=== PATIENT | female | born 1965 | race Caucasian/White ===

== ENCOUNTER 2017-02-13 10:08 | Outpatient (RCR) | payer OTHER ==
[~2017-02-13 10:08] MED LIST: ASPI-808 PO; CALC-656 PO; CHOL2000 PO; ERGO400C PO; FEXO1TAB49 PO; HYDR-34 PO; IBP600T1 PO; LEVO75TA57 PO; Levothyroxine Sodium PO; METH454P PO; Metronidazole PO; OXYC-12 PO; POLY119P PO; Simethicone PO
[2017-02-13 10:26] LABS: BASOPHILS % (AUTO) 1 % (0-10); EOSINOPHILS # (AUTO) 0.1 10^3/uL (0.0-0.3); EOSINOPHILS % (AUTO) 3 % (0-10); LYMPHOCYTES # (AUTO) 1.5 X 10^3 (1.0-4.0); LYMPHOCYTES % (AUTO) 35 % (12-44); MEAN CORPUSCULAR HEMOGLOBIN 30 PG (25-34); MEAN CORPUSCULAR HGB CONC 34 G/DL (32-36); MEAN CORPUSCULAR VOLUME 89 FL (80-99); MEAN PLATELET VOLUME 10.1 FL (7.4-10.4); MONOCYTES # (AUTO) 0.5 X 10^3 (0.0-1.0); MONOCYTES % (AUTO) 10 % (0-12); NEUTROPHILS # (AUTO) 2.2 X 10^3 (1.8-7.8); NEUTROPHILS % (AUTO) 51 % (42-75); PLATELET COUNT 254 10^3/uL (130-400); RED BLOOD COUNT 4.82 10^6/uL (4.35-5.85); RED CELL DISTRIBUTION WIDTH 13.1 % (10.0-14.5); WHITE BLOOD COUNT 4.3 10^3/uL (4.3-11.0)
[2017-02-13 10:47] LABS: ALANINE AMINOTRANSFERASE 22 U/L (0-55); ALBUMIN 4.3 G/DL (3.2-4.5); ANION GAP 8 MMOL/L (5-14); ASPARTATE AMINO TRANSFERASE 18 U/L (5-34); BILIRUBIN,TOTAL 0.3 MG/DL (0.1-1.0); BLOOD UREA NITROGEN 12 MG/DL (7-18); BUN/CREATININE RATIO 16; CALCIUM 10.1 MG/DL (8.5-10.1); CARBON DIOXIDE 25 MMOL/L (21-32); CHLORIDE 109 MMOL/L (98-107); CREATININE SERUM 0.74 MG/DL (0.60-1.30); GFR ESTIMATED > 60; GLUCOSE 83 MG/DL (70-105); POTASSIUM 3.7 MMOL/L (3.6-5.0); SODIUM 142 MMOL/L (135-145); TOTAL PROTEIN 6.9 G/DL (6.4-8.2)
== END 2017-05-14 | disposition home or self-care (01) ==
LOC: ONC 10:08
PROVIDERS: ATTEND Internal Medicine Hematology & Oncology
DX: C50.411 Malignant neoplasm of upper-outer quadrant of right female breast (principal); D68.2 Hereditary deficiency of other clotting factors; E03.9 Hypothyroidism, unspecified; Z17.0 Estrogen receptor positive status [ER+]; Z86.711 Personal history of pulmonary embolism; Z79.82 Long term (current) use of aspirin
CPT/HCPCS: 36415; 80053; 84443; 85025; 86300; 99213

== ENCOUNTER → 2017-02-28 | Outpatient (CLI) | payer OTHER ==
[~2017-02-28] MED LIST changes: +BARIUM SUSPENSION 2.1% (VANILLA SILQ) 450 ML PO ONE; +CATHETER FLUSH 10 ML SYR IV PRN; +IOHEXOL 350 MG/ML 100 ML (OMNIPAQUE 350) VIAL IV ONE; +NS 100 ML (IVPB) BAG IV ONE
[2017-02-28] MEDS: CATHETER FLUSH 10 ML SYR IV PRN ×2 (11:05→11:08)
--- NOTE | 2017-02-28 15:36 | Diagnostic Imaging Report ---
PROCEDURE: CT chest and abdomen with contrast. TECHNIQUE: Multiple contiguous axial images were obtained through the chest and abdomen after the administration of intravenous contrast. INDICATION: Breast cancer. CONTRAST: 100 mL of Omnipaque 350 is administered intravenously. COMPARISON: 02/13/2016. FINDINGS: CT chest: The lungs demonstrate tiny calcified granulomas in the anterior mid portion of right middle lobe with no suspicious pulmonary nodule, mass, or consolidation seen. The heart size is normal. There is normal caliber of the thoracic aorta. Calcified granulomas in the right paratracheal and precarinal stations are seen. No noncalcified enlarged lymph nodes or masses are noted in the mediastinum, severino, or axillae. Symmetric breast implants are noted. No soft tissue mass identified. The osseous structures appear grossly unremarkable. CT abdomen: The liver, the gallbladder, the spleen, the pancreas, and the adrenal glands appear unremarkable. The kidneys have symmetric enhancement with no hydronephrosis. The abdominal aorta is normal in caliber. No para-aortic significantly enlarged lymph nodes. There are surgical clips seen in the right lower quadrant and suture near the base of the cecum, presumably related to prior appendectomy. The osseous structures demonstrate a 1.7 cm sclerotic focus in the anterior aspect of the right iliac bone. This is similar to appearance on the localizer CT scan associated with the PET performed on 12/13/2015 with no PET activity of significance seen at this location on the prior study. Lower lumbar spine facet sclerotic degenerative changes are seen. IMPRESSION: CT chest: Calcified granulomas in the right middle lobe and mediastinum. No evidence of metastasis. CT abdomen: Sclerotic lesion measuring 1.8 cm in the anterior aspect of the right iliac bone is seen. This region demonstrated no significant hypermetabolism on prior PET and is favored to be an incidental bony island. Followup exams recommended. No soft tissue mass or lymphadenopathy seen. Dictated by: Dictated on workstation # [id number]
--- NOTE | 2017-02-28 18:10 | Diagnostic Imaging Report ---
Whole body bone scan. Technique: After the intravenous administration of 26 mCi of Technetium 99m MDP, whole body delayed phase bone scan images were obtained with lateral views of the head and neck and the chest regions. Indication: Breast cancer. Findings: Mild foci of upper thoracic and lower lumbar spine increased radiotracer uptake are likely degenerative. Likely ossification related to chondral cartilage activity is also seen in the anterior lower ribs. There is mild activity with increased uptake in the shoulders and moderate increased activity in the knees more prominent anteriorly probably along the patellofemoral compartments compatible with degenerative changes. There is no correlate increased uptake seen to the sclerotic focus seen on CT scan of the abdomen in the anterior aspect of the right iliac bone. No suspicious intense foci of increased uptake particularly in the axial skeleton to suggest metastatic disease. IMPRESSION: Findings likely degenerative related with no scintigraphic evidence of osseous metastasis. Dictated by: Dictated on workstation # [id number]
== END ==
LOC: CARD 10:50
PROVIDERS: ATTEND Internal Medicine Hematology & Oncology
DX: Z01.89 Encounter for other specified special examinations (principal); C50.911 Malignant neoplasm of unspecified site of right female breast
CPT/HCPCS: 71260; 74160; 78306

== ENCOUNTER 2017-05-20 09:19 | Outpatient (RCR) | payer OTHER ==
[~2017-05-20 09:19] MED LIST changes: -BARIUM SUSPENSION 2.1% (VANILLA SILQ) 450 ML PO ONE; -CATHETER FLUSH 10 ML SYR IV PRN; -IOHEXOL 350 MG/ML 100 ML (OMNIPAQUE 350) VIAL IV ONE; -NS 100 ML (IVPB) BAG IV ONE
[2017-05-20 09:34] LABS: BASOPHILS % (AUTO) 1 % (0-10); EOSINOPHILS # (AUTO) 0.2 10^3/uL (0.0-0.3); EOSINOPHILS % (AUTO) 4 % (0-10); LYMPHOCYTES # (AUTO) 1.9 X 10^3 (1.0-4.0); LYMPHOCYTES % (AUTO) 37 % (12-44); MEAN CORPUSCULAR HGB CONC 34 G/DL (32-36); MEAN CORPUSCULAR VOLUME 91 FL (80-99); MONOCYTES # (AUTO) 0.3 X 10^3 (0.0-1.0); MONOCYTES % (AUTO) 7 % (0-12); NEUTROPHILS # (AUTO) 2.7 X 10^3 (1.8-7.8); NEUTROPHILS % (AUTO) 52 % (42-75); PLATELET COUNT 247 10^3/uL (130-400); RED CELL DISTRIBUTION WIDTH 12.7 % (10.0-14.5); WHITE BLOOD COUNT 5.1 10^3/uL (4.3-11.0)
[2017-05-20 09:36] LABS: MEAN CORPUSCULAR HEMOGLOBIN 30 PG (25-34)
[2017-05-20 10:38] LABS: ALANINE AMINOTRANSFERASE 25 U/L (0-55); ALBUMIN 4.1 GM/DL (3.2-4.5); ANION GAP 8 MMOL/L (5-14); ASPARTATE AMINO TRANSFERASE 17 U/L (5-34); BILIRUBIN,TOTAL 0.4 MG/DL (0.1-1.0); BLOOD UREA NITROGEN 18 MG/DL (7-18); BUN/CREATININE RATIO 22; CALCIUM 9.8 MG/DL (8.5-10.1); CARBON DIOXIDE 26 MMOL/L (21-32); CHLORIDE 107 MMOL/L (98-107); CREATININE SERUM 0.82 MG/DL (0.60-1.30); GFR ESTIMATED > 60; GLUCOSE 97 MG/DL (70-105); POTASSIUM 3.8 MMOL/L (3.6-5.0); SODIUM 141 MMOL/L (135-145); TOTAL PROTEIN 6.8 GM/DL (6.4-8.2)
== END 2017-08-10 | disposition home or self-care (01) ==
LOC: ONC 09:19
PROVIDERS: ATTEND Internal Medicine Hematology & Oncology
DX: C50.411 Malignant neoplasm of upper-outer quadrant of right female breast (principal); D68.2 Hereditary deficiency of other clotting factors; E03.9 Hypothyroidism, unspecified; Z17.0 Estrogen receptor positive status [ER+]; Z86.711 Personal history of pulmonary embolism; Z79.82 Long term (current) use of aspirin
CPT/HCPCS: 36415; 80053; 85025; 86300; 99213

== ENCOUNTER → 2017-08-19 | Outpatient (CLI) | payer OTHER ==
[~2017-08-19] MED LIST changes: +ASCO-262 PO; +CALC-650 PO; +CETI10TA20 PO; +CHOL200014 PO; +LEVO100T PO; +TURM500C4 PO
[2017-08-19 12:17] LABS: THYROID STIMULATING HORMONE 0.45 UIU/ML (0.35-4.94)
== END ==
LOC: LAB 11:28
PROVIDERS: ATTEND Family Medicine
DX: E03.9 Hypothyroidism, unspecified (principal)
CPT/HCPCS: 84439; 84443

== ENCOUNTER 2017-08-21 05:37 | Outpatient (CLI) | payer OTHER ==
[~2017-08-21] VITALS: Ht 172.7 cm; Wt 93.1 kg
[~2017-08-21 05:37] MED LIST changes: -ASCO-262 PO; -CALC-650 PO; -CETI10TA20 PO; -CHOL200014 PO; -LEVO100T PO; -TURM500C4 PO
[2017-08-21] MEDS ORDERED: LEVO100T PO (09:39)
[2017-08-21] MEDS ORDERED: TURM500C4 PO (09:39)
[2017-08-21] MEDS ORDERED: CALC-650 PO (09:39)
[2017-08-21] MEDS ORDERED: CHOL200014 PO (09:39)
[2017-08-21] MEDS ORDERED: CETI10TA20 PO (09:39)
[2017-08-21] MEDS ORDERED: ASCO-262 PO (09:39)
== END 2017-08-21 09:44 ==
LOC: PREOP 05:37
PROVIDERS: ATTEND Internal Medicine
DX: Z01.818 Encounter for other preprocedural examination (principal); Z85.3 Personal history of malignant neoplasm of breast; Z80.0 Family history of malignant neoplasm of digestive organs

== ENCOUNTER 2017-08-23 07:04 | Day surgery (SDC) | payer OTHER ==
--- NOTE | 2017-08-14 10:31 | HISTORY AND PHYSICAL ---
DATE OF SERVICE: DATE OF ADMISSION: 08/23/2017 COLONOSCOPY HISTORY AND PHYSICAL HISTORY OF PRESENT ILLNESS: The patient is a 51-year-old white female referred by Dr. Willoughby for screening colonoscopy. She last accomplished colonoscopy 5 years ago and had no evidence for neoplasia. She is deemed to be of higher than average risk as there is a family history for colon cancer, in this case being her mother diagnosed some time in her early to mid 70s. In the interval since her last colonoscopy, the patient was diagnosed with breast cancer in 11/2015. She underwent a double mastectomy with reconstruction in 01/2016 with no evidence for recurrence. She did not require chemotherapy or radiation therapy. PAST MEDICAL HISTORY: Also significant for small pulmonary embolism in 2013 which followed a total abdominal hysterectomy for fibroids. Ovaries were left intact. She was on direct anticoagulant therapy for 6 months. MEDICATIONS ON ADMISSION: Synthroid 100 mcg daily, Rhonda 180 mg daily, aspirin 325 mg daily, vitamin C 1000 mg daily, calcium 1000 mg daily, vitamin D3 5600 units daily, Turmeric 500 mg daily, magnesium 4 mg daily, zinc 15 mg daily and Lunesta 1 mg at bedtime p.r.n. insomnia. SOCIAL HISTORY: She is with no past smoking history and occasional social alcohol use. PAST SURGICAL HISTORY: Significant for hysterectomy, bilateral mastectomy, past bilateral bunionectomies an abdominoplasty. FAMILY HISTORY: Partially noted in the HPI. Father has history of COPD with a smoking history. Has one brother who had laryngeal cancer and one brother with hepatitis C. Her mother also had breast cancer in addition to colon cancer, postmenopausal. PHYSICAL EXAMINATION: GENERAL: Reveals a pleasant, white female, appears to be in no acute distress. VITAL SIGNS: Blood pressure 116/78, heart rate 72 and regular, respiratory rate 16 and nonlabored. HEENT: Unremarkable. Sclerae nonicteric. CHEST: Clear. CARDIOVASCULAR: Reveals a regular rate and rhythm without murmur, S3 or S4. ABDOMEN: Soft, supple without mass, organomegaly or tenderness. EXTREMITIES: Reveal no cyanosis, clubbing or edema. ASSESSMENT: The patient was set up for a screening colonoscopy on 08/23/2017. Prep instructions with SUPREP kit were given and questions were answered. I thank you for the referral of this pleasant lady. Job ID: [id number] DocumentID: [id number] Dictated Date: 07/30/2017 07:33:50 [employer] Date: 07/30/2017 08:09:49 Dictated By: SHEY WOODS MD
[~2017-08-23] VITALS: Ht 172.7 cm; Wt 93.1 kg
[~2017-08-23 07:04] MED LIST changes: +ASCO-262 PO; +CALC-650 PO; +CETI10TA20 PO; +CHOL200014 PO; +LEVO100T PO; +TURM500C4 PO
[2017-08-23] MEDS ORDERED: 1/2 NS IV SOLUTION 1,000 ML IV ONE (07:10)
[2017-08-23] MEDS ORDERED: 1/2 NS IV SOLUTION 1,000 ML IV STA (07:12)
[2017-08-23] MEDS ORDERED: LIDOCAINE JELLY 2% (XYLOCAINE) 5 ML TUBE MM PRN (07:15)
[2017-08-23 07:29] VITALS: BP 118/83
--- NOTE | 2017-08-23 07:32 | Pre-Op Note & Conscious Sedat ---
Pre-Operative Progress Note H&P Reviewed The H&P was reviewed, patient examined and no changes noted. Date H&P Reviewed: Aug 23, 2017 Time H&P Reviewed: 07:32 Conscious Sedation Pre-Proced ASA Class: 2 Airway Mallampati Classification: (mcgrath appropriate class) I. II. III, IV Lungs Heart ASA score ASA 1: a normal healthy patient ASA 2: a patient with a mild systemic disease (mid diabetes, controlled hypertension, obesity ASA 3: a patient with a severe systemic disease that limits activity (angina , COPD, prior Myocardial infarction) ASA 4: a patient with an incapacitating disease that is a constant threat to life (CHF, renal failure) ASA 5: a moribund patient not expected to survive 24 hrs. (ruptured aneurysm) ASA 6: a declared brain patient whose organs are being harvested. For emergent operations, add the letter E after the classification Grade 3 Sedation Plan: Analgesia, Amnesia, Plan communicated to team members, Discussed options with patient/fam, Discussed risks with patient/fam Note The patient is an appropriate candidate to undergo the planned procedure, sedation, and anesthesia. The patient immediately re-assessed prior to indication. SHEY WOODS MD Aug 23, 2017 07:32
[2017-08-23] MEDS ORDERED: fentaNYL INJECTION 100 MCG/2 ML AMP ONE (07:37)
[2017-08-23] MEDS ORDERED: MIDAZOLAM 2 MG/2 ML (VERSED) VIAL ONE ×2 (07:37→07:53)
[2017-08-23] MEDS ORDERED: LIDOCAINE JELLY 2% (XYLOCAINE) 5 ML TUBE ONE (07:38)
[2017-08-23] MEDS: fentaNYL INJECTION 100 MCG/2 ML AMP IVP PRN ×2 (07:53→08:00)
[2017-08-23] MEDS: MIDAZOLAM 2 MG/2 ML (VERSED) VIAL IVP PRN ×2 (07:55→08:05)
[2017-08-23 08:50] VITALS: BP 128/90
[2017-08-23 09:20] VITALS: BP 118/87
[2017-08-23 09:48] VITALS: BP 118/87
--- OUTSIDE RECORDS SUMMARY | 2017-08-23 21:05 | XMS REPORT | Continuity of Care Document ---
Author Author [facility] Organization [facility] Address Unknown Phone Unavailable Allergies Active Description Code Type Severity Reaction Onset Reported/Identified Relationship to Patient Clinical Status Yes PCN PCN Unknown N/A 10/26/2011 Yes Penicillins [id number] Drug Allergy Unknown N/A 09/04/2015 Medications Problems Date Dx Coded Attending Type Code Diagnosis Diagnosed By 12/12/2012 Ot 218.9 12/12/2012 Ot 626.2 12/12/2012 Ot 793.5 12/12/2012 Ot V45.89 10/13/2014 Ot 793.81 10/13/2014 Ot V76.12 10/13/2014 Ot 610.1 10/13/2014 Ot 459.89 10/13/2014 Ot V16.0 10/13/2014 Ot V16.3 10/13/2014 Ot V76.51 10/13/2014 Ot 244.8 10/13/2014 Ot 268.9 10/13/2014 Ot 610.1 10/13/2014 Ot V76.12 10/13/2014 Ot 625.8 10/13/2014 Ot 626.8 10/13/2014 Ot 626.8 10/13/2014 Ot 626.2 10/13/2014 Ot V45.89 10/13/2014 Ot V72.63 10/13/2014 Ot V74.8 10/13/2014 TERRY HICKMAN MD Ot 610.0 10/13/2014 TERRY HICKMAN MD Ot V76.12 11/01/2014 ENIO ALBRIGHT DO Ot 218.9 11/01/2014 ENIO ALBRIGHT DO Ot 626.2 11/01/2014 Ot 793.81 11/01/2014 Ot V76.12 11/01/2014 Ot 610.1 11/01/2014 Ot 459.89 11/01/2014 Ot V16.0 11/01/2014 Ot V16.3 11/01/2014 Ot V76.51 11/01/2014 Ot 244.8 11/01/2014 Ot 268.9 11/01/2014 Ot 610.1 11/01/2014 Ot V76.12 11/01/2014 Ot 625.8 11/01/2014 Ot 626.8 11/01/2014 Ot 626.8 11/01/2014 Ot 626.2 11/01/2014 Ot V45.89 11/01/2014 Ot V72.63 11/01/2014 Ot V74.8 11/01/2014 VICK BARRON, TERRY Choudhary Ot 610.0 11/01/2014 VICK BARRON, TERRY Choudhary Ot V76.12 11/01/2014 ALBRIGHT DO, ENIO C Ot 218.9 11/01/2014 ALBRIGHT DO, ENIO C Ot 626.2 11/05/2014 VICK BARRON, TERRY Choudhary Ot V76.12 11/08/2014 ALBRIGHT DO, ENIO C Ot 218.9 11/08/2014 ALBRIGHT DO, ENIO C Ot 626.2 11/08/2014 ALBRIGHT DO, ENIO C Ot V72.63 11/08/2014 ALBRIGHT DO, ENIO C Ot V74.8 11/10/2014 ALBRIGHT DO, ENIO C Ot 218.1 11/10/2014 ALBRIGHT DO, ENIO C Ot 218.9 11/10/2014 ALBRIGHT DO, ENIO C Ot 610.1 11/10/2014 ALBRIGHT DO, ENIO C Ot 616.0 11/10/2014 ALBRIGHT DO, ENIO C Ot 616.10 11/10/2014 ALBRIGHT DO, ENIO C Ot 617.0 11/10/2014 ALBRIGHT DO, ENIO C Ot 620.8 11/10/2014 ALBRIGHT DO, ENIO C Ot 622.7 12/02/2014 TERRY HICKMAN MD Ot V76.12 12/02/2014 ALBRIGHT DO, ENIO C Ot 218.9 12/02/2014 ALBRIGHT DO, ENIO C Ot 626.2 12/02/2014 ALBRIGHT DO, ENIO C Ot V72.63 12/02/2014 ALBRIGHT DO, ENIO C Ot V74.8 12/15/2014 VICK BARRON, TERRY Choudhary Ot 786.50 12/15/2014 VICK BARRON, TERRY M Ot 790.6 12/15/2014 VICK BARRON, TERRY M Ot 786.50 12/15/2014 VICK BARRON, TERRY M Ot 790.6 01/04/2015 IVCK BARRON, TERRY M Ot 786.50 01/04/2015 VICK BARRON, TERRY M Ot 786.50 01/04/2015 VICK BARRON, TERRY M Ot 790.6 01/04/2015 VICK BARRON, TERRY M Ot 790.99 02/08/2015 KHUSHBOO, BOBAN N Ot 244.9 02/08/2015 KHUSHBOO, BOBAN N Ot 415.19 02/08/2015 KHUSHBOO, BOBAN N Ot V58.61 02/08/2015 KHUSHBOO, BOBAN N Ot V88.01 03/28/2015 KHUSHBOO, BOBAN N Ot 244.9 03/28/2015 KHUSHBOO, BOBAN N Ot 415.19 03/28/2015 KHUSHBOO, BOBAN N Ot V58.61 03/28/2015 KHUSHBOO, BOBAN N Ot V88.01 06/28/2015 KHUSHBOO, BOBAN N Ot 244.9 06/28/2015 KHUSHBOO, BOBAN N Ot 415.19 06/28/2015 KHUSHBOO, BOBAN N Ot V58.61 06/28/2015 KHUSHBOO, BOBAN N Ot V88.01 07/04/2015 KHUSHBOO, BOBAN N Ot 244.9 07/04/2015 KHUSHBOO, BOBAN N Ot 415.19 07/04/2015 KHUSHBOO, BOBAN N Ot V58.61 07/04/2015 KHUSHBOO, BOBAN N Ot V88.01 07/05/2015 KHUSHBOO, BOBAN N Ot 244.9 07/05/2015 KHUSHBOO, BOBAN N Ot 415.19 07/05/2015 KHUSHBOO, BOBAN N Ot V58.61 07/05/2015 KHUSHBOO, BOBAN N Ot V88.01 07/05/2015 KHUSHBOO, BOBAN N Ot 244.9 07/05/2015 KHUSHBOO, BOBAN N Ot 415.19 07/05/2015 KHUSHBOO, BOBAN N Ot V58.61 07/05/2015 KHUSHBOO, BOBAN N Ot V88.01 07/26/2015 KHUSHBOO, BOBAN N Ot 244.9 07/26/2015 KHUSHBOO, HAIM N Ot 415.19 07/26/2015 KHUSHBOO, HAIM N Ot V58.61 07/26/2015 KHUSHBOO, HAIM N Ot V88.01 08/10/2015 KHUSHBOO, HAIM N Ot 244.9 08/10/2015 KHUSHBOO, HAIM N Ot 415.19 08/10/2015 KHUSHBOO, HAIM N Ot V58.61 08/10/2015 KHUSHBOO, HAIM N Ot V88.01 09/04/2015 KHUSHBOO, HAIM N Ot 244.9 09/04/2015 KHUSHBOO, HAIM N Ot 415.19 09/04/2015 KHUSHBOO, HAIM N Ot V58.61 09/04/2015 KHUSHBOO, HAIM N Ot V88.01 09/05/2015 JARROD BARRON, DELPHINE R Ot R07.9 09/05/2015 JARROD BARRON, DELPHINE R Ot Z86.711 09/05/2015 JARROD BARRON, DELPHINE R Ot E03.9 09/05/2015 JARROD BARRON, DELPHINE R Ot M54.12 09/05/2015 JARROD BARRON, DELPHINE R Ot M79.622 09/05/2015 JARROD BARRON, DELPHINE R Ot R07.9 09/05/2015 JARROD BARRON, DELPHINE R Ot Z86.711 09/05/2015 JARROD BARRON, DELPHNIE R Ot R07.9 09/05/2015 JARROD BARRON, DELPHINE R Ot Z86.711 09/13/2015 KHUSHBOO, HAIM N Ot 244.9 09/13/2015 KHUSHBOO, HAIM N Ot 415.19 09/13/2015 KHUSHBOO, HAIM N Ot V58.61 09/13/2015 KHUSHBOO, HAIM N Ot V88.01 10/29/2015 KHUSHBOO, HAIM N Ot 244.9 10/29/2015 KHUSHBOO, BOBAN N Ot 415.19 10/29/2015 KHUSHBOO, BOBKOBY N Ot V58.61 10/29/2015 KHUSHBOO, HAIM N Ot V88.01 11/08/2015 DIONY HARRIS SEDIMENTATIONIST Ot E03.9 11/08/2015 DIONY HARRIS SEDIMENTATIONIST Ot E55.9 11/08/2015 WYATTDIONY BAHENA SEDIMENTATIONIST Ot Z00.00 11/08/2015 HAIM CUELLO Ot E03.9 11/08/2015 HAIM CUELLO N Ot I26.99 11/08/2015 HAIM CUELLO N Ot Z79.82 11/15/2015 Ot 793.81 11/15/2015 Ot V76.12 11/15/2015 Ot 610.1 11/15/2015 Ot 459.89 11/15/2015 Ot V16.0 11/15/2015 Ot V16.3 11/15/2015 Ot V76.51 11/15/2015 Ot 244.8 11/15/2015 Ot 268.9 11/15/2015 Ot 610.1 11/15/2015 Ot V76.12 11/15/2015 Ot 625.8 11/15/2015 Ot 626.8 11/15/2015 Ot 626.8 11/15/2015 Ot 626.2 11/15/2015 Ot V45.89 11/15/2015 Ot V72.63 11/15/2015 Ot V74.8 11/15/2015 VICK BARRON, TERRY Choudhary Ot 610.0 11/15/2015 VICK BARRON, TERRY M Ot V76.12 11/15/2015 ALBRIGHT DO, ENIO C Ot 218.9 11/15/2015 ALBRIGHT DO, ENIO C Ot 626.2 11/15/2015 VICK BARRON, TERRY M Ot V76.12 11/15/2015 ALBRIGHT DO, ENIO C Ot 218.9 11/15/2015 ALBRIGHT DO, ENIO C Ot 626.2 11/15/2015 ALBRIGHT DO, ENIO C Ot V72.63 11/15/2015 ALBRIGHT DO, ENIO C Ot V74.8 11/15/2015 VICK BARRON, TERRY Choudhary Ot 786.50 11/15/2015 VICK BARRON, TERRY M Ot 786.50 11/15/2015 VICK BARRON, TERRY M Ot 790.6 11/15/2015 VICK BARRON, TERRY Choudhary Ot 790.99 11/15/2015 HAIM CUELLO N Ot E03.9 11/15/2015 KHUSHBOO, BOBAN N Ot I26.99 11/15/2015 KHUSHBOO, MAKEDAAN N Ot Z79.82 11/15/2015 VANBECELAEJEANNIE, DIONY Choudhary SEDIMENTATIONIST Ot E03.9 11/15/2015 VANBECELAEJEANNIE, DIONY Choudhary SEDIMENTATIONIST Ot E55.9 11/15/2015 VANBECELAEJEANNIE, DIONY M SEDIMENTATIONIST Ot Z00.00 12/18/2015 KHUSHBOO, BOBAN N Ot E03.9 12/18/2015 KHUSHBOO, BOBAN N Ot I26.99 12/18/2015 KHUSHBOO, BOBAN N Ot Z79.82 01/09/2016 KHUSHBOO, BOBAN N Ot E03.9 01/09/2016 KHUSHBOO, BOBAN N Ot I26.99 01/09/2016 KHUSHBOO, BOBAN N Ot Z79.82 01/10/2016 KHUSHBOO, BOBAN N Ot E03.9 01/10/2016 KHUSHBOO, BOBAN N Ot I26.99 01/10/2016 KHUSHBOO, BOBAN N Ot Z79.82 02/14/2016 KHUSHBOO, BOBAN N Ot D68.51 02/14/2016 KHUSHBOO, BOBAN N Ot R07.9 02/14/2016 KHUSHBOO, BOBAN N Ot Z86.711 03/01/2016 VANJOSEF, DIONY Choudhary SEDIMENTATIONIST Ot N60.02 SOLITARY CYST OF LEFT BREAST 03/01/2016 KIMBERLY, DIONY Choudhary SEDIMENTATIONIST Ot R92.8 OTH ABN AND INCONCLUSIVE FINDINGS ON DX 03/01/2016 DIONY HARRIS SEDIMENTATIONIST Ot Z09 ENCNTR FOR F/U EXAM AFT TRTMT FOR COND O 03/01/2016 STEVE MARES DO Ot R92.8 OTH ABN AND INCONCLUSIVE FINDINGS ON DX 03/01/2016 STEVE MARES DO Ot C50.911 MALIGNANT NEOPLASM OF UNSP SITE OF RIGHT 03/01/2016 STEVE MARES DO Ot 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 [ER -] 03/01/2016 CAROL BARRON, JAMES Ot C50.911 MALIGNANT NEOPLASM OF UNSP SITE OF RIGHT 03/01/2016 HAIM CUELLO Ot C50.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 NEOPLM OF UPPER-OUTER QUADRANT OF 03/01/2016 HAIM CUELLO Ot D68.2 HEREDITARY DEFICIENCY OF OTHER CLOTTING 03/01/2016 HAIM CUELLO Ot E03.9 HYPOTHYROIDISM, UNSPECIFIED 03/01/2016 HAIM CUELLO Ot Z17.0 ESTROGEN RECEPTOR POSITIVE STATUS [ER+] 03/01/2016 HAIM CUELLO Ot Z79.82 CORRECTION (CURRENT) USE OF ASPIRIN 03/01/2016 HAIM CUELLO Ot 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 03/01/2016 HAIM CUELLO Ot D68.51 ACTIVATED PROTEIN C RESISTANCE 03/01/2016 HAIM CUELLO Ot R07.9 CHEST PAIN, UNSPECIFIED 03/01/2016 HAIM CUELLO Ot 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 03/02/2016 HAIM CUELLO Ot C50.911 MALIGNANT NEOPLASM OF UNSP SITE OF RIGHT 03/02/2016 HAIM CUELLO Ot M85.9 DISORDER OF BONE DENSITY AND STRUCTURE, 03/02/2016 HAIM CUELLO Ot Z79.899 OTHER PROFILER HAND (CURRENT) DRUG THERAPY 03/16/2016 CAROL BARRON, JAMES Ot C50.911 MALIGNANT NEOPLASM OF UNSP SITE OF RIGHT 04/08/2016 HAIM CUELLO Ot C50.411 MALIG NEOPLM OF UPPER-OUTER QUADRANT OF 04/08/2016 HAIM CUELLO Ot D68.2 HEREDITARY DEFICIENCY OF OTHER CLOTTING 04/08/2016 AHIM CUELLO Ot E03.9 HYPOTHYROIDISM, UNSPECIFIED 04/08/2016 HAIM CUELLO Ot Z17.0 ESTROGEN RECEPTOR POSITIVE STATUS [ER+] 04/08/2016 HAIM CUELLO Ot Z79.82 PROFILER HAND (CURRENT) USE OF ASPIRIN 04/08/2016 HAIM CUELLO Ot 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 04/14/2016 DIONY HARRIS Ot N60.02 SOLITARY CYST OF LEFT BREAST 04/14/2016 DIONY HARRIS Ot R92.8 OTH ABN AND INCONCLUSIVE FINDINGS ON DX 04/14/2016 DIONY HARRIS Ot Z09 ENCNTR FOR F/U EXAM AFT TRTMT FOR COND O 04/14/2016 STEVE MARES DO Ot R92.8 OTH ABN AND INCONCLUSIVE FINDINGS ON DX 04/14/2016 STEVE MARES DO Ot C50.911 MALIGNANT NEOPLASM OF UNSP SITE OF RIGHT 04/14/2016 STEVE MARES DO Ot 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 [ER -] 04/14/2016 CAROL BARRON, JAMES Ot C50.911 MALIGNANT NEOPLASM OF UNSP SITE OF RIGHT 04/14/2016 HAIM CUELLO Ot D68.51 ACTIVATED PROTEIN C RESISTANCE 04/14/2016 HAIM CUELLO Ot R07.9 CHEST PAIN, UNSPECIFIED 04/14/2016 HAIM CUELLO Ot 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 04/14/2016 HAIM CUELLO Ot C50.911 MALIGNANT NEOPLASM OF UNSP SITE OF RIGHT 04/14/2016 HAIM CUELLO Ot M85.9 DISORDER OF BONE DENSITY AND STRUCTURE, 04/14/2016 HAIM CUELLO Ot Z79.899 OTHER PROFILER HAND (CURRENT) DRUG THERAPY 04/14/2016 HAIM CUELLO Ot C50.411 MALIG NEOPLM OF UPPER-OUTER QUADRANT OF 04/14/2016 HAIM CUELLO Ot D68.2 HEREDITARY DEFICIENCY OF OTHER CLOTTING 04/14/2016 HAIM CUELLO Ot E03.9 HYPOTHYROIDISM, UNSPECIFIED 04/14/2016 HAIM CUELLO Ot Z17.0 ESTROGEN RECEPTOR POSITIVE STATUS [ER+] 04/14/2016 HAIM CUELLO Ot Z79.82 CORRECTION (CURRENT) USE OF ASPIRIN 04/14/2016 HAIM CUELLO Ot 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51 ACTIVATED PROTEIN C RESISTANCE 04/17/2016 HAIM CUELLO Ot R07.9 CHEST PAIN, UNSPECIFIED 04/17/2016 HAIM CUELLO Ot 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 04/17/2016 HAIM CUELLO Ot C50.911 MALIGNANT NEOPLASM OF UNSP SITE OF RIGHT 04/17/2016 HAIM CUELLO Ot M85.9 DISORDER OF BONE DENSITY AND STRUCTURE, 04/17/2016 HAIM CUELLO Ot Z79.899 OTHER CORRECTION (CURRENT) DRUG THERAPY 04/17/2016 HAIM CUELLO Osmin Ot C50.411 MALIG NEOPLM OF UPPER-OUTER QUADRANT OF 04/17/2016 HAIM CUELLO Ot D68.2 HEREDITARY DEFICIENCY OF OTHER CLOTTING 04/17/2016 HAIM CUELLO Ot E03.9 HYPOTHYROIDISM, UNSPECIFIED 04/17/2016 HAIM CUELLO Ot Z17.0 ESTROGEN RECEPTOR POSITIVE STATUS [ER+] 04/17/2016 HAIM CUELLO N Ot Z79.82 PROFILER HAND (CURRENT) USE OF ASPIRIN 04/17/2016 HAIM CUELLO N Ot 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 09/04/2016 STEVE MARES DO Ot E03.9 HYPOTHYROIDISM, UNSPECIFIED 09/21/2016 BASHIR OLSON APRN Ot G47.33 OBSTRUCTIVE SLEEP APNEA (ADULT) ( PEDIATR 09/21/2016 BASHIR OLSON APRN Ot G47.33 OBSTRUCTIVE SLEEP APNEA (ADULT) ( PEDIATR 09/22/2016 BASHIR OLSON AIRCRAFT SERVICER Ot G47.33 OBSTRUCTIVE SLEEP APNEA (ADULT) ( PEDIATR 12/20/2016 DIONY HARRISP Ot N60.02 SOLITARY CYST OF LEFT BREAST 12/20/2016 DIONY HARRIS SEDIMENTATIONIST Ot R92.8 OTH ABN AND INCONCLUSIVE FINDINGS ON DX 12/20/2016 WYATTSILVESTREZULEMA DIONY Choudhary SEDIMENTATIONIST Ot Z09 ENCNTR FOR F/U EXAM AFT TRTMT FOR COND O 12/20/2016 STEVE MARES DO Ot R92.8 OTH ABN AND INCONCLUSIVE FINDINGS ON DX 12/20/2016 STEVE MARES DO Ot C50.911 MALIGNANT NEOPLASM OF UNSP SITE OF RIGHT 12/20/2016 STEVE MARES DO Ot 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 [ER -] 12/20/2016 CAROL BARRON, OLIVARESLouiseALYSSA Ot C50.911 MALIGNANT NEOPLASM OF UNSP SITE OF RIGHT 12/20/2016 HAIM CUELLO Ot D68.51 ACTIVATED PROTEIN C RESISTANCE 12/20/2016 HAIM CUELLO Ot R07.9 CHEST PAIN, UNSPECIFIED 12/20/2016 HAIM CUELLO Ot 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 12/20/2016 HAIM CUELLO Ot C50.911 MALIGNANT NEOPLASM OF UNSP SITE OF RIGHT 12/20/2016 HAIM CUELLO Ot M85.9 DISORDER OF BONE DENSITY AND STRUCTURE, 12/20/2016 HAIM CUELLO N Ot Z79.899 OTHER CORRECTION (CURRENT) DRUG THERAPY 12/20/2016 HAIM CUELLO Ot C50.411 MALIG NEOPLM OF UPPER-OUTER QUADRANT OF 12/20/2016 HAIM CUELLO N Ot D68.2 HEREDITARY DEFICIENCY OF OTHER CLOTTING 12/20/2016 HAIM CUELLO N Ot E03.9 HYPOTHYROIDISM, UNSPECIFIED 12/20/2016 HAIM CUELLO Ot Z17.0 ESTROGEN RECEPTOR POSITIVE STATUS [ER+] 12/20/2016 HAIM CUELLO N Ot Z79.82 PROFILER HAND (CURRENT) USE OF ASPIRIN 12/20/2016 HAIM CUELLO N Ot 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 12/20/2016 STEVE MARES DO Ot E03.9 HYPOTHYROIDISM, UNSPECIFIED 02/14/2017 HAIM CUELLO N Ot C50.411 MALIG NEOPLM OF UPPER-OUTER QUADRANT OF 02/14/2017 HAIM CUELLO N Ot D68.2 HEREDITARY DEFICIENCY OF OTHER CLOTTING 02/14/2017 KHUSHBOO, BOBAN N Ot E03.9 HYPOTHYROIDISM, UNSPECIFIED 02/14/2017 HAIM CUELLO N Ot Z17.0 ESTROGEN RECEPTOR POSITIVE STATUS [ER+] 02/14/2017 HAIM CUELLO N Ot Z79.82 CORRECTION (CURRENT) USE OF ASPIRIN 02/14/2017 HAIM CUELLO N Ot 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 03/01/2017 HAIM CUELLO N Ot C50.911 MALIGNANT NEOPLASM OF UNSP SITE OF RIGHT 03/01/2017 HAIM CUELLO N Ot Z01.89 ENCOUNTER FOR OTHER SPECIFIED SPECIAL EX 05/14/2017 HAIM CUELLO N Ot C50.411 MALIG NEOPLM OF UPPER-OUTER QUADRANT OF 05/14/2017 HAIM CUELLO N Ot D68.2 HEREDITARY DEFICIENCY OF OTHER CLOTTING 05/14/2017 HAIM CUELLO N Ot E03.9 HYPOTHYROIDISM, UNSPECIFIED 05/14/2017 HAIM CUELLO N Ot Z17.0 ESTROGEN RECEPTOR POSITIVE STATUS [ER+] 05/14/2017 HAIM CUELLO N Ot Z79.82 PROFILER HAND (CURRENT) USE OF ASPIRIN 05/14/2017 HAIM CUELLO N Ot 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 05/20/2017 HAIM CUELLO N Ot C50.411 MALIG NEOPLM OF UPPER-OUTER QUADRANT OF 05/20/2017 HAIM CUELLO N Ot D68.2 HEREDITARY DEFICIENCY OF OTHER CLOTTING 05/20/2017 HAIM CUELLO N Ot E03.9 HYPOTHYROIDISM, UNSPECIFIED 05/20/2017 HAIM CUELLO N Ot Z17.0 ESTROGEN RECEPTOR POSITIVE STATUS [ER+] 05/20/2017 HAIM CUELLO N Ot Z79.82 CORRECTION (CURRENT) USE OF ASPIRIN 05/20/2017 HAIM CUELLO N Ot 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 05/22/2017 HAIM CUELLO N Ot C50.411 MALIG NEOPLM OF UPPER-OUTER QUADRANT OF 05/22/2017 HAIM CUELLO N Ot D68.2 HEREDITARY DEFICIENCY OF OTHER CLOTTING 05/22/2017 HAIM CUELLO N Ot E03.9 HYPOTHYROIDISM, UNSPECIFIED 05/22/2017 HAIM CUELLO N Ot Z17.0 ESTROGEN RECEPTOR POSITIVE STATUS [ER+] 05/22/2017 HAIM CUELLO Ot Z79.82 CORRECTION (CURRENT) USE OF ASPIRIN 05/22/2017 HAIM CUELLO Ot 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 Procedures Results Test Result Range THYROID STIMULATING HORMONE - 09/03/16 15:25 THYROID STIMULATING HORMONE 0.82 u[iU]/mL 0.35-4.94 Serum or plasma thyroxine (T4) free measurement (mass/volume) - 09/03/16 15:25 Serum or plasma thyroxine (T4) free measurement (mass/volume) 0.93 ng/dL 0.70-1.48 Encounters ACCT No. Visit Date/Time Discharge Status Pt. Type Provider Facility Loc./Unit Complaint [id number] 05/20/2017 09:19:00 2016 23:59:59 CLS Outpatient MAKEDA CUELLOKOBY Solorio [facility] ONC [id number] 02/13/2017 10:08:00 2016 00:01:00 DIS Outpatient HAIM CUELLO [facility] ONC [id number] 02/28/2017 10:50:00 2016 23:59:59 CLS Outpatient KHUSHBOO HAIM Solorio [facility] CARD C50.919 [id number] 09/20/2016 20:10:00 2015 06:05:00 DIS Outpatient BASHIR OLSON Osmin BEE [facility] SLEEP DESIREE,INSOMNIA,MORNING HEADACHE [id number] 09/03/2016 15:19:00 2015 23:59:59 CLS Outpatient STEVE MARES DO [facility] LAB HYPOTHYROIDISM [id number] 03/07/2016 11:02:00 2015 00:01:00 DIS Outpatient HAIM CUELLO [facility] ONC [id number] 03/01/2016 11:22:00 2015 23:59:59 CLS Outpatient HAIM CUELLO [facility] RAD BREAST CANCER HORMONE TREATMENT [id number] 02/13/2016 17:53:00 2015 23:59:59 CLS Outpatient HAIM CUELLO [facility] LAB ACUTE CHEST PAIN,HISTORY OF PULMONARY EMBOLISM [id number] 12/16/2015 12:13:00 2015 23:59:59 CLS Preadmit ELISABET ALVARENGA SEDIMENTATIONIST [facility] ONC [id number] 12/13/2015 10:08:00 2015 23:59:59 CLS Outpatient CAROL BARRON, JAMES [facility] RAD INITIAL STAGING BREAST CANCER, BREAST CA [id number] 12/07/2015 12:11:00 2015 23:59:59 CLS Outpatient STEVE MARES DO [facility] RAD ABNORMAL MAMMO AND MRI [id number] 11/25/2015 10:36:00 2015 23:59:59 CLS Outpatient STEVE MARES DO [facility] RAD BILATERAL BREAST ASYMMETRY [id number] 11/15/2015 13:23:00 2015 23:59:59 CLS Outpatient DIONY HARRIS [facility] RAD FOLLOW UP [id number] 10/20/2015 07:59:00 2014 23:59:59 CLS Outpatient DIONY HARRIS [facility] LAB [id number] 09/19/2015 13:14:00 2014 23:59:59 CLS Outpatient HAIM CUELLO [facility] ONC [id number] 09/04/2015 14:00:00 2014 13:40:00 DIS Inpatient JARROD BARRON, DELPHINE Martinez [facility] ICU [id number] 08/02/2015 15:31:00 2014 00:01:00 DIS Outpatient HAIM CUELLO [facility] ONC [id number] 12/28/2014 13:32:00 2014 23:59:59 CLS Outpatient HAIM CUELLO [facility] ONC [id number] 12/15/2014 08:53:00 2014 23:59:59 CLS Outpatient TERRY HICKMAN MD [facility] RAD [id number] 12/14/2014 14:01:00 2014 23:59:59 CLS Outpatient TERRY HICKMAN MD [facility] RAD [id number] 12/14/2014 10:06:00 2014 23:59:59 CLS Outpatient TERRY HICKMAN MD [facility] LAB [id number] 11/15/2014 14:15:00 2014 23:59:59 CLS Preadmit TERRY HICKMAN MD [facility] RAD [id number] 11/09/2014 06:05:00 2013 12:35:00 DIS Outpatient ALBRIGHT DO ENIO C [facility] [id number] 11/01/2014 14:27:00 2013 23:59:59 CLS Outpatient TERRY HICKMAN MD [facility] RAD [id number] 11/01/2014 13:50:00 2013 23:59:59 CLS Outpatient ALBRIGHT DO ENIO C [facility] PREOP [id number] 10/13/2014 12:25:00 2013 23:59:59 CLS Outpatient ALBRIGHT DO, ENIO C [facility] RAD [id number] 10/29/2013 08:34:00 2012 23:59:59 CLS Outpatient TERRY HICKMAN MD [facility] RAD [id number] 12/12/2012 06:02:00 Document Registration [id number] 12/08/2012 09:59:00 Document Registration [id number] 11/19/2012 14:18:00 Document Registration [id number] 11/18/2012 10:40:00 Document Registration [id number] 10/28/2012 08:41:00 Document Registration [id number] 10/26/2011 07:37:00 Document Registration [id number] 10/22/2011 14:27:00 Document Registration [id number] 10/09/2010 09:40:00 Document Registration
--- OUTSIDE RECORDS SUMMARY | 2017-08-23 21:05 | XMS REPORT | Referral Summary ---
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 Name Role Phone Zena Willoughby PCP Encounter VC Date(s): 06/25/16 - 06/25/16 [facility] [address] [place] [address] [phone] Discharge Disposition: 01-Home or Self Care Attending Physician: Luke Marks MD Admitting Physician: Luke Marks MD Vital Signs Most recent to 1 oldest [Reference Range]: Temperature Temporal 35.7 degC Artery [36.3-37.8 *LOW* degC] (06/25/16 11:16 AM) Peripheral Pulse 69 bpm Rate [60-100 bpm] (06/25/16 6:55 AM) Heart Rate Monitored 98 bpm [60-100 bpm] (06/25/16 11:16 AM) Respiratory Rate 16 br/min [14-20 br/min] (06/25/16 11:16 AM) Blood Pressure 136/79 mmHg [90-140/60-90 mmHg] (06/25/16 11:16 AM) SpO2 96 % (06/25/16 11:16 AM) Problem List Condition Effective Dates Status Health Status Informant DVT (deep venous Active patient thrombosis)(Confirme d) Hypothyroidism(Confi Active patient rmed) Allergies, Adverse Reactions, Alerts Substance Reaction Severity Status penicillins Active Medications Aspir 81 81 mg, Oral, Daily, 0 Refill(s) Start Date: 06/25/16 Status: Ordered Calcium 600+D See Instructions, Oral, 0 Refill(s) Start Date: 06/25/16 Status: Ordered exemestane 25 mg oral tablet 25 mg 1 tabs, Oral, Daily, 0 Refill(s) Start Date: 06/25/16 Status: Ordered exemestane 25 mg oral tablet 25 mg 1 tabs, Oral, Daily, 0 Refill(s) Start Date: 06/25/16 Status: Ordered levothyroxine 100 mcg (0.1 mg) oral tablet 100 mcg 1 tabs, Oral, Daily, 0 Refill(s) Start Date: 06/25/16 Status: Ordered levothyroxine 100 mcg (0.1 mg) oral tablet 100 mcg 1 tabs, Oral, Daily, 0 Refill(s) Start Date: 06/25/16 Status: Ordered Vitamin D with Minerals oral tablet 1 tabs, Oral, Daily, # 30 tabs, 0 Refill(s) Start Date: 06/25/16 Status: Ordered zolpidem 5 mg oral tablet 5 mg 1 tabs, Oral, Bedtime (once a day), 0 Refill(s) Start Date: 06/25/16 Status: Ordered zolpidem 5 mg oral tablet 5 mg 1 tabs, Oral, Bedtime (once a day), 0 Refill(s) Start Date: 06/25/16 Status: Ordered ZyrTEC 10 mg oral tablet 10 mg 1 tabs, Oral, Daily, # 30 tabs, 0 Refill(s) Start Date: 06/25/16 Status: Ordered Results Chemistry Most recent to 1 oldest [Reference Range]: Blood Glucose, 102 mg/dL Capillary [70-100 *HI* mg/dL] (06/25/16 7:13 AM) Immunizations No data available for this section Procedures Procedure Date Related Diagnosis Body Site Reconstruction Breast with Tissue Expanders 06/25/16 (Bilateral)1 Appendectomy bilateral mastectomy bunionectomy d and c hysterectomy emmett way 1auto-populated from documented surgical case Social History Social History Type Response Smoking Status Never smoker Assessment and Plan No data available for this section
--- NOTE | 2017-08-24 07:48 | OPERATIVE REPORT ---
DATE OF SERVICE: 08/23/2017 COLONOSCOPY SUMMARY REFERRING PHYSICIAN: Zena Tanner DO INDICAITON FOR PROCEDURE: Screening colonoscopy, family history for colon cancer, and personal history of breast cancer. The patient was placed in the left lateral decubitus position. Prior to undergoing colonoscopy, digital rectal evaluation was performed. Anal sphincter tone was normal and the perianal reflex was normal. Digital evaluation was compatible with a small anterior rectocele. No other additional abnormalities were appreciated. Colonoscope was then inserted into the rectum and under direct visualization advanced to the cecum. The cecum was identified by identification of the ileocecal valve and the cecal strap. Photographic documentation was obtained. Photographic documentation was not obtained due to technical difficulty with photographic equipments. FINDINGS: There was no evidence for internal or external hemorrhoids. Present in the distal rectum was a 3 mm sessile hyperplastic appearing polyp. It was biopsied and ablated and submitted for histopathology. No other rectal abnormalities were noted. The sigmoid colon was unremarkable without evidence for diverticular disease. Present at the splenic flexure was a slightly inflamed appearing fold. It was noted on the way out only suggesting the possibility of scope trauma. I could not rule out atypical flat adenoma, so, biopsy was obtained and submitted for histopathology. The transverse colon, hepatic flexure, ascending colon and cecum were unremarkable. ASSESSMENT: 1. Diminutive distal rectal polyp was removed via hot forceps today, likely hyperplastic in etiology. As long as this is the case, considering personal and family history would advocate repeat screening colonoscopy in 5 years. 2. Scope trauma versus atypical polyp at the splenic flexure, Biopsy taken, histopathology pending. 3. Digital rectal evaluation consistent with a small anterior rectocele, asymptomatic. I thank for the referral of this pleasant lady. Job ID: [id number] DocumentID: [id number] Dictated Date: 08/23/2017 12:49:41 Geodesist Date: 08/24/2017 00:49:32 Dictated By: SHEY WOODS MD [facility]
== END 2017-08-23 09:48 | disposition home or self-care (01) ==
LOC: ENDO 07:04
PROVIDERS: ATTEND Internal Medicine
DX: Z12.11 Encounter for screening for malignant neoplasm of colon (principal); K62.1 Rectal polyp; Z80.0 Family history of malignant neoplasm of digestive organs; Z85.3 Personal history of malignant neoplasm of breast; Z86.718 Personal history of other venous thrombosis and embolism

== ENCOUNTER 2017-11-12 16:13 | Outpatient (RCR) | payer OTHER ==
[2017-08-19 11:36] LABS: BASOPHILS % (AUTO) 1 % (0-10); EOSINOPHILS # (AUTO) 0.2 10^3/uL (0.0-0.3); EOSINOPHILS % (AUTO) 3 % (0-10); HEMATOCRIT 43 % (35-52); HEMOGLOBIN 14.4 G/DL (11.5-16.0); LYMPHOCYTES # (AUTO) 1.9 X 10^3 (1.0-4.0); LYMPHOCYTES % (AUTO) 40 % (12-44); MEAN CORPUSCULAR HEMOGLOBIN 30 PG (25-34); MEAN CORPUSCULAR HGB CONC 34 G/DL (32-36); MEAN CORPUSCULAR VOLUME 90 FL (80-99); MEAN PLATELET VOLUME 10.2 FL (7.4-10.4); MONOCYTES # (AUTO) 0.4 X 10^3 (0.0-1.0); MONOCYTES % (AUTO) 9 % (0-12); NEUTROPHILS # (AUTO) 2.2 X 10^3 (1.8-7.8); NEUTROPHILS % (AUTO) 47 % (42-75); PLATELET COUNT 270 10^3/uL (130-400); RED BLOOD COUNT 4.75 10^6/uL (4.35-5.85); RED CELL DISTRIBUTION WIDTH 12.8 % (10.0-14.5); WHITE BLOOD COUNT 4.7 10^3/uL (4.3-11.0)
[2017-08-19 11:57] LABS: ALANINE AMINOTRANSFERASE 28 U/L (0-55); ALBUMIN 4.4 GM/DL (3.2-4.5); ALKALINE PHOSPHATASE 98 U/L (40-136); BILIRUBIN,TOTAL 0.4 MG/DL (0.1-1.0); BUN/CREATININE RATIO 20; CARBON DIOXIDE 26 MMOL/L (21-32); CHLORIDE 105 MMOL/L (98-107); CREATININE SERUM 0.74 MG/DL (0.60-1.30); GFR ESTIMATED > 60; GLUCOSE 101 MG/DL (70-105); SODIUM 138 MMOL/L (135-145); TOTAL PROTEIN 7.5 GM/DL (6.4-8.2)
[2017-11-12 16:28] LABS: BASOPHILS # (AUTO) 0.1 10^3/uL (0.0-0.1); BASOPHILS % (AUTO) 1 % (0-10); EOSINOPHILS # (AUTO) 0.3 10^3/uL (0.0-0.3); EOSINOPHILS % (AUTO) 4 % (0-10); HEMATOCRIT 41 % (35-52); HEMOGLOBIN 13.9 G/DL (11.5-16.0); LYMPHOCYTES # (AUTO) 2.4 X 10^3 (1.0-4.0); LYMPHOCYTES % (AUTO) 35 % (12-44); MEAN CORPUSCULAR HEMOGLOBIN 31 PG (25-34); MEAN CORPUSCULAR HGB CONC 34 G/DL (32-36); MEAN CORPUSCULAR VOLUME 90 FL (80-99); MEAN PLATELET VOLUME 10.1 FL (7.4-10.4); MONOCYTES # (AUTO) 0.7 X 10^3 (0.0-1.0); MONOCYTES % (AUTO) 10 % (0-12); NEUTROPHILS # (AUTO) 3.4 X 10^3 (1.8-7.8); NEUTROPHILS % (AUTO) 50 % (42-75); PLATELET COUNT 245 10^3/uL (130-400); RED CELL DISTRIBUTION WIDTH 12.8 % (10.0-14.5); WHITE BLOOD COUNT 6.8 10^3/uL (4.3-11.0)
== END 2017-11-17 | disposition home or self-care (01) ==
LOC: ONC 16:13
PROVIDERS: ATTEND Internal Medicine Hematology & Oncology
DX: C50.411 Malignant neoplasm of upper-outer quadrant of right female breast (principal); D68.2 Hereditary deficiency of other clotting factors; E03.9 Hypothyroidism, unspecified; Z17.0 Estrogen receptor positive status [ER+]; Z86.711 Personal history of pulmonary embolism; Z79.82 Long term (current) use of aspirin
CPT/HCPCS: 36415; 80053; 85025; 86300; 99213

== ENCOUNTER 2017-11-18 12:59 | Outpatient (RCR) | payer OTHER | END 2018-02-16 | disposition home or self-care (01) | LOC: ONC 12:59 | PROVIDERS: ATTEND Internal Medicine Hematology & Oncology | DX: Z08 Encounter for follow-up examination after completed treatment for malignant neoplasm (principal); Z85.3 Personal history of malignant neoplasm of breast; Z90.13 Acquired absence of bilateral breasts and nipples; Z88.0 Allergy status to penicillin; Z79.899 Other long term (current) drug therapy; D68.51 Activated protein C resistance; Z86.718 Personal history of other venous thrombosis and embolism; Z79.82 Long term (current) use of aspirin | CPT/HCPCS: 99213 ==

== ENCOUNTER 2018-02-20 13:26 | Outpatient (RCR) | payer OTHER ==
[2018-02-20 13:38] LABS: BASOPHILS # (AUTO) 0.1 10^3/uL (0.0-0.1); BASOPHILS % (AUTO) 1 % (0-10); EOSINOPHILS # (AUTO) 0.1 10^3/uL (0.0-0.3); EOSINOPHILS % (AUTO) 3 % (0-10); HEMATOCRIT 41 % (35-52); HEMOGLOBIN 14.1 G/DL (11.5-16.0); LYMPHOCYTES % (AUTO) 41 % (12-44); MEAN CORPUSCULAR HEMOGLOBIN 31 PG (25-34); MEAN CORPUSCULAR HGB CONC 34 G/DL (32-36); MEAN CORPUSCULAR VOLUME 91 FL (80-99); MEAN PLATELET VOLUME 9.9 FL (7.4-10.4); MONOCYTES # (AUTO) 0.4 X 10^3 (0.0-1.0); MONOCYTES % (AUTO) 8 % (0-12); NEUTROPHILS # (AUTO) 2.3 X 10^3 (1.8-7.8); NEUTROPHILS % (AUTO) 47 % (42-75); PLATELET COUNT 266 10^3/uL (130-400); RED BLOOD COUNT 4.55 10^6/uL (4.35-5.85); RED CELL DISTRIBUTION WIDTH 12.7 % (10.0-14.5); WHITE BLOOD COUNT 4.9 10^3/uL (4.3-11.0)
[2018-02-20 14:00] LABS: ALANINE AMINOTRANSFERASE 29 U/L (0-55); ALBUMIN 4.6 GM/DL (3.2-4.5); ALKALINE PHOSPHATASE 90 U/L (40-136); BILIRUBIN,TOTAL 0.4 MG/DL (0.1-1.0); BUN/CREATININE RATIO 18; CALCIUM 10.4 MG/DL (8.5-10.1); CARBON DIOXIDE 29 MMOL/L (21-32); CHLORIDE 105 MMOL/L (98-107); CREATININE SERUM 0.72 MG/DL (0.60-1.30); GFR ESTIMATED > 60; GLUCOSE 112 MG/DL (70-105); POTASSIUM 3.7 MMOL/L (3.6-5.0); SODIUM 140 MMOL/L (135-145); TOTAL PROTEIN 7.3 GM/DL (6.4-8.2)
== END 2018-05-21 | disposition home or self-care (01) ==
LOC: ONC 13:26
PROVIDERS: ATTEND Internal Medicine Hematology & Oncology
DX: Z08 Encounter for follow-up examination after completed treatment for malignant neoplasm (principal); Z85.3 Personal history of malignant neoplasm of breast; Z90.13 Acquired absence of bilateral breasts and nipples; Z88.0 Allergy status to penicillin; Z79.899 Other long term (current) drug therapy; D68.51 Activated protein C resistance; Z86.718 Personal history of other venous thrombosis and embolism; Z79.82 Long term (current) use of aspirin
CPT/HCPCS: 36415; 80053; 85025; 86300; 99213

== ENCOUNTER → 2018-06-23 | Outpatient (CLI) | payer OTHER ==
[2018-06-23 13:44] LABS: BASOPHILS % (AUTO) 0 % (0-10); EOSINOPHILS # (AUTO) 0.2 10^3/uL (0.0-0.3); EOSINOPHILS % (AUTO) 3 % (0-10); HEMATOCRIT 40 % (35-52); HEMOGLOBIN 13.8 G/DL (11.5-16.0); LYMPHOCYTES # (AUTO) 2.1 X 10^3 (1.0-4.0); LYMPHOCYTES % (AUTO) 36 % (12-44); MEAN CORPUSCULAR HEMOGLOBIN 31 PG (25-34); MEAN CORPUSCULAR HGB CONC 34 G/DL (32-36); MEAN CORPUSCULAR VOLUME 89 FL (80-99); MONOCYTES # (AUTO) 0.4 X 10^3 (0.0-1.0); MONOCYTES % (AUTO) 7 % (0-12); NEUTROPHILS # (AUTO) 3.1 X 10^3 (1.8-7.8); NEUTROPHILS % (AUTO) 53 % (42-75); PLATELET COUNT 265 10^3/uL (130-400); RED BLOOD COUNT 4.53 10^6/uL (4.35-5.85); WHITE BLOOD COUNT 5.9 10^3/uL (4.3-11.0)
[2018-06-23 14:02] LABS: ALANINE AMINOTRANSFERASE 57 U/L (0-55); ALBUMIN 4.5 GM/DL (3.2-4.5); ALKALINE PHOSPHATASE 80 U/L (40-136); BILIRUBIN,TOTAL 0.4 MG/DL (0.1-1.0); BUN/CREATININE RATIO 20; CALCIUM 10.3 MG/DL (8.5-10.1); CARBON DIOXIDE 23 MMOL/L (21-32); CHLORIDE 106 MMOL/L (98-107); CREATININE SERUM 0.75 MG/DL (0.60-1.30); GFR ESTIMATED > 60; GLUCOSE 108 MG/DL (70-105); POTASSIUM 3.8 MMOL/L (3.6-5.0); SODIUM 139 MMOL/L (135-145); TOTAL PROTEIN 6.9 GM/DL (6.4-8.2)
[2018-06-23 14:17] LABS: ERYTHROCYTE SEDIMENTATION RATE 5 MM/HR (0-30)
[2018-06-23 14:23] LABS: FREE T4 (FREE THYROXINE) 0.94 NG/DL (0.70-1.48)
== END ==
LOC: LAB 13:03
PROVIDERS: ATTEND Family Medicine
DX: Z00.00 Encounter for general adult medical examination without abnormal findings (principal); R53.83 Other fatigue; M25.50 Pain in unspecified joint
CPT/HCPCS: 36415; 80053; 82306; 84439; 84443; 84480; 85025; 85652; 86038; 86060; 86430

== ENCOUNTER → 2018-06-24 | Outpatient (CLI) | payer OTHER ==
[2018-06-24 08:37] LABS: CHOLESTEROL 183 MG/DL (< 200); HDL CHOLESTEROL 57 MG/DL (40-60); TRIGLYCERIDES 83 MG/DL (<150); VLDL CHOLESTEROL 17 MG/DL (5-40)
== END ==
LOC: LAB 08:04
PROVIDERS: ATTEND Family Medicine
DX: Z00.00 Encounter for general adult medical examination without abnormal findings (principal); M25.50 Pain in unspecified joint; R53.83 Other fatigue; E03.9 Hypothyroidism, unspecified
CPT/HCPCS: 36415; 80061; 84550

== ENCOUNTER 2018-09-11 13:04 | Outpatient (RCR) | payer OTHER ==
[2018-09-11 13:23] LABS: BASOPHILS # (AUTO) 0.1 10^3/uL (0.0-0.1); BASOPHILS % (AUTO) 1 % (0-10); EOSINOPHILS # (AUTO) 0.3 10^3/uL (0.0-0.3); EOSINOPHILS % (AUTO) 4 % (0-10); HEMATOCRIT 43 % (35-52); HEMOGLOBIN 14.7 G/DL (11.5-16.0); LYMPHOCYTES # (AUTO) 2.5 X 10^3 (1.0-4.0); LYMPHOCYTES % (AUTO) 42 % (12-44); MEAN CORPUSCULAR HEMOGLOBIN 30 PG (25-34); MEAN CORPUSCULAR HGB CONC 34 G/DL (32-36); MEAN CORPUSCULAR VOLUME 90 FL (80-99); MEAN PLATELET VOLUME 10.2 FL (7.4-10.4); MONOCYTES # (AUTO) 0.4 X 10^3 (0.0-1.0); MONOCYTES % (AUTO) 6 % (0-12); NEUTROPHILS # (AUTO) 2.8 X 10^3 (1.8-7.8); NEUTROPHILS % (AUTO) 47 % (42-75); PLATELET COUNT 270 10^3/uL (130-400); RED CELL DISTRIBUTION WIDTH 13.2 % (10.0-14.5); WHITE BLOOD COUNT 5.9 10^3/uL (4.3-11.0)
[2018-09-11 13:44] LABS: ALANINE AMINOTRANSFERASE 38 U/L (0-55); ALBUMIN 4.8 GM/DL (3.2-4.5); ALKALINE PHOSPHATASE 89 U/L (40-136); BILIRUBIN,TOTAL 0.4 MG/DL (0.1-1.0); BUN/CREATININE RATIO 19; CALCIUM 10.7 MG/DL (8.5-10.1); CARBON DIOXIDE 25 MMOL/L (21-32); CHLORIDE 106 MMOL/L (98-107); CREATININE SERUM 0.89 MG/DL (0.60-1.30); GFR ESTIMATED > 60; GLUCOSE 110 MG/DL (70-105); POTASSIUM 3.7 MMOL/L (3.6-5.0); SODIUM 141 MMOL/L (135-145); TOTAL PROTEIN 7.7 GM/DL (6.4-8.2)
== END 2018-12-10 | disposition home or self-care (01) ==
LOC: ONC 13:04
PROVIDERS: ATTEND Internal Medicine Hematology & Oncology
DX: Z08 Encounter for follow-up examination after completed treatment for malignant neoplasm (principal); Z85.3 Personal history of malignant neoplasm of breast; D68.51 Activated protein C resistance; E03.9 Hypothyroidism, unspecified; Z86.718 Personal history of other venous thrombosis and embolism; Z90.13 Acquired absence of bilateral breasts and nipples; Z79.899 Other long term (current) drug therapy; Z79.82 Long term (current) use of aspirin; Z88.0 Allergy status to penicillin
CPT/HCPCS: 36415; 80053; 85025; 86300; 99213

== ENCOUNTER → 2018-09-29 | Outpatient (CLI) | payer OTHER ==
[~2018-09-29] MED LIST changes: -CHOL200014 PO; +CHOL200085 PO
[2018-09-29 16:19] LABS: FREE T4 (FREE THYROXINE) 1.1 NG/DL (0.70-1.48)
== END ==
LOC: LAB 15:07
PROVIDERS: ATTEND Family Medicine
DX: M25.50 Pain in unspecified joint (principal); R53.83 Other fatigue; E03.9 Hypothyroidism, unspecified; E83.52 Hypercalcemia; S30.861A Insect bite (nonvenomous) of abdominal wall, initial encounter; W57.XXXA Bitten or stung by nonvenomous insect and other nonvenomous arthropods, initial encounter
CPT/HCPCS: 36415; 83970; 84439; 84443; 86618; 86666; 86668; 86757

== ENCOUNTER 2019-03-19 11:07 | Outpatient (RCR) | payer OTHER ==
[~2019-03-19 11:07] MED LIST changes: +CHOL200014 PO; -CHOL200085 PO
[2019-03-19 11:22] LABS: BASOPHILS % (AUTO) 0 % (0-10); EOSINOPHILS # (AUTO) 0.2 10^3/uL (0.0-0.3); EOSINOPHILS % (AUTO) 3 % (0-10); HEMATOCRIT 42 % (35-52); HEMOGLOBIN 14.1 G/DL (11.5-16.0); LYMPHOCYTES # (AUTO) 2.4 X 10^3 (1.0-4.0); LYMPHOCYTES % (AUTO) 40 % (12-44); MEAN CORPUSCULAR HEMOGLOBIN 30 PG (25-34); MEAN CORPUSCULAR HGB CONC 34 G/DL (32-36); MEAN CORPUSCULAR VOLUME 89 FL (80-99); MEAN PLATELET VOLUME 9.9 FL (7.4-10.4); MONOCYTES # (AUTO) 0.5 X 10^3 (0.0-1.0); MONOCYTES % (AUTO) 9 % (0-12); NEUTROPHILS # (AUTO) 2.9 X 10^3 (1.8-7.8); NEUTROPHILS % (AUTO) 48 % (42-75); PLATELET COUNT 282 10^3/uL (130-400)
[2019-03-19 11:40] LABS: ALANINE AMINOTRANSFERASE 39 U/L (0-55); ALBUMIN 4.6 GM/DL (3.2-4.5); ALKALINE PHOSPHATASE 88 U/L (40-136); BILIRUBIN,TOTAL 0.5 MG/DL (0.1-1.0); BUN/CREATININE RATIO 23; CALCIUM 10.9 MG/DL (8.5-10.1); CARBON DIOXIDE 24 MMOL/L (21-32); CHLORIDE 108 MMOL/L (98-107); CREATININE SERUM 0.79 MG/DL (0.60-1.30); GFR ESTIMATED > 60; GLUCOSE 97 MG/DL (70-105); POTASSIUM 4.1 MMOL/L (3.6-5.0); SODIUM 140 MMOL/L (135-145); TOTAL PROTEIN 7.3 GM/DL (6.4-8.2)
== END 2019-06-17 | disposition home or self-care (01) ==
LOC: ONC 11:07
PROVIDERS: ATTEND Internal Medicine Hematology & Oncology
DX: Z08 Encounter for follow-up examination after completed treatment for malignant neoplasm (principal); Z85.3 Personal history of malignant neoplasm of breast; D68.51 Activated protein C resistance; E03.9 Hypothyroidism, unspecified; Z86.718 Personal history of other venous thrombosis and embolism; Z90.13 Acquired absence of bilateral breasts and nipples; Z79.899 Other long term (current) drug therapy; Z79.82 Long term (current) use of aspirin; Z88.0 Allergy status to penicillin
CPT/HCPCS: 36415; 80053; 85025; 86300; 99213

== ENCOUNTER → 2019-08-05 | Outpatient (CLI) | payer OTHER ==
[2019-08-05 15:06] LABS: FREE T4 (FREE THYROXINE) 0.94 NG/DL (0.70-1.48)
== END ==
LOC: LAB 14:15
PROVIDERS: ATTEND Nurse Practitioner Family
DX: E03.9 Hypothyroidism, unspecified (principal)
CPT/HCPCS: 36415; 84439; 84443

== ENCOUNTER → 2019-08-24 | Outpatient (CLI) | payer OTHER ==
[2019-08-24 16:33] LABS: ALANINE AMINOTRANSFERASE 37 U/L (0-55); ALBUMIN 4.5 GM/DL (3.2-4.5); ALKALINE PHOSPHATASE 86 U/L (40-136); BILIRUBIN,TOTAL 0.4 MG/DL (0.1-1.0); BUN/CREATININE RATIO 19; CALCIUM 10.5 MG/DL (8.5-10.1); CARBON DIOXIDE 29 MMOL/L (21-32); CHLORIDE 104 MMOL/L (98-107); CREATININE SERUM 0.86 MG/DL (0.60-1.30); GFR ESTIMATED > 60; GLUCOSE 94 MG/DL (70-105); MAGNESIUM 2.1 MG/DL (1.6-2.4); POTASSIUM 3.8 MMOL/L (3.6-5.0); SODIUM 142 MMOL/L (135-145); TOTAL PROTEIN 7.2 GM/DL (6.4-8.2)
[2019-08-24 16:53] LABS: FREE T4 (FREE THYROXINE) 1.05 NG/DL (0.70-1.48)
== END ==
LOC: LAB 15:54
PROVIDERS: ATTEND Internal Medicine
DX: E03.9 Hypothyroidism, unspecified (principal); R73.9 Hyperglycemia, unspecified
CPT/HCPCS: 36415; 80053; 83735; 84439; 84481; 84482; 86376

== ENCOUNTER → 2019-09-11 | Outpatient (CLI) | payer OTHER ==
--- NOTE | 2019-09-11 15:06 | Diagnostic Imaging Report ---
PROCEDURE: US Thyroid. TECHNIQUE: Multiple real-time grayscale images were obtained of the thyroid in various projections. INDICATION: Thyromegaly and hyperparathyroidism. FINDINGS: The right lobe of the thyroid measures 3.9 x 1.1 x 1.3 cm and the left lobe measures 3.5 x 0.8 x 1.4 cm. Isthmus is 3 mm in thickness. There is a hypoechoic nodule in the mid posterior aspect of the right lobe of the thyroid measuring 1.7 x 0.8 x 1.1 cm. This does show some vascularity. No microcalcifications are seen. No other thyroid masses are detected. IMPRESSION: Hypoechoic nodule either within or immediately posterior to the right lobe of the thyroid gland. In patient with hyperparathyroidism, possibility of a parathyroid adenoma cannot be entirely excluded. Nuclear medicine parathyroid scan would be useful for further evaluation. Dictated by: Dictated on workstation # [id number]
== END ==
LOC: RAD 11:15
PROVIDERS: ATTEND Nurse Practitioner Family
DX: E21.3 Hyperparathyroidism, unspecified (principal); E01.0 Iodine-deficiency related diffuse (endemic) goiter; E04.1 Nontoxic single thyroid nodule
CPT/HCPCS: 36415; 76536; 83970

== ENCOUNTER → 2019-09-18 | Outpatient (CLI) | payer OTHER ==
[2019-09-18 10:19] LABS: BASOPHILS % (AUTO) 1 % (0-10); EOSINOPHILS # (AUTO) 0.1 10^3/uL (0.0-0.3); EOSINOPHILS % (AUTO) 3 % (0-10); HEMATOCRIT 43 % (35-52); HEMOGLOBIN 14.4 G/DL (11.5-16.0); LYMPHOCYTES # (AUTO) 1.7 X 10^3 (1.0-4.0); LYMPHOCYTES % (AUTO) 41 % (12-44); MEAN CORPUSCULAR HEMOGLOBIN 30 PG (25-34); MEAN CORPUSCULAR HGB CONC 33 G/DL (32-36); MEAN CORPUSCULAR VOLUME 90 FL (80-99); MEAN PLATELET VOLUME 10.2 FL (7.4-10.4); MONOCYTES # (AUTO) 0.4 X 10^3 (0.0-1.0); MONOCYTES % (AUTO) 9 % (0-12); NEUTROPHILS # (AUTO) 1.9 X 10^3 (1.8-7.8); NEUTROPHILS % (AUTO) 46 % (42-75); PLATELET COUNT 247 10^3/uL (130-400); RED CELL DISTRIBUTION WIDTH 12.7 % (10.0-14.5); WHITE BLOOD COUNT 4.1 10^3/uL (4.3-11.0)
[2019-09-18 10:46] LABS: ALANINE AMINOTRANSFERASE 32 U/L (0-55); ALBUMIN 4.6 GM/DL (3.2-4.5); ALKALINE PHOSPHATASE 76 U/L (40-136); BILIRUBIN,TOTAL 0.5 MG/DL (0.1-1.0); BUN/CREATININE RATIO 19; CALCIUM 10.4 MG/DL (8.5-10.1); CARBON DIOXIDE 21 MMOL/L (21-32); CHLORIDE 107 MMOL/L (98-107); CREATININE SERUM 0.77 MG/DL (0.60-1.30); GFR ESTIMATED > 60; GLUCOSE 101 MG/DL (70-105); POTASSIUM 4.1 MMOL/L (3.6-5.0); SODIUM 140 MMOL/L (135-145)
== END ==
LOC: EDSTATUS 06-18 09:26 → ONC 09:58
PROVIDERS: ATTEND Internal Medicine Hematology & Oncology
DX: C50.911 Malignant neoplasm of unspecified site of right female breast (principal); Z86.711 Personal history of pulmonary embolism; Z90.13 Acquired absence of bilateral breasts and nipples
CPT/HCPCS: 36415; 80053; 85025; 99213

== ENCOUNTER → 2019-09-22 | Outpatient (CLI) | payer OTHER ==
--- NOTE | 2019-09-22 15:17 | Diagnostic Imaging Report ---
INDICATION: Parathyroid adenoma. TECHNIQUE: The patient was administered 21 mCi of technetium 99m sestamibi intravenously and imaging over the neck and upper chest was performed at 20 minutes and 2 hours. SPECT-CT was also performed. FINDINGS: Early images demonstrate physiologic activity within the salivary glands as well as both lobes of the thyroid. There is some washout of activity from both lobes of the thyroid on the delayed images. There is a focus of persistent increased activity overlying the lower pole of the right lobe of the thyroid. This appears to be posteriorly located on the SPECT images and is highly suspicious for a parathyroid adenoma. No other suspicious foci are seen. No mediastinal uptake is identified. IMPRESSION: Findings are highly suspicious for a parathyroid adenoma at the level of the lower pole of the right lobe of the thyroid. Dictated by: Dictated on workstation # [id number]
== END ==
LOC: CARD 12:07
PROVIDERS: ATTEND Nurse Practitioner Family
DX: D35.1 Benign neoplasm of parathyroid gland (principal)
CPT/HCPCS: 78072

== ENCOUNTER → 2020-01-19 | Outpatient (CLI) | payer OTHER ==
[~2020-01-19] MED LIST changes: -CETI10TA20 PO; +CETI10TA21 PO
[2020-01-19 13:49] LABS: FREE T4 (FREE THYROXINE) 0.96 NG/DL (0.70-1.48)
== END ==
LOC: LAB 12:40
PROVIDERS: ATTEND Family Medicine
DX: E03.9 Hypothyroidism, unspecified (principal)
CPT/HCPCS: 36415; 84439; 84443

== ENCOUNTER → 2020-04-22 | Outpatient (CLI) | payer OTHER ==
[2020-04-22 14:10] LABS: BASOPHILS # (AUTO) 0.1 10^3/uL (0.0-0.1); BASOPHILS % (AUTO) 1 % (0-10); EOSINOPHILS # (AUTO) 0.3 10^3/uL (0.0-0.3); EOSINOPHILS % (AUTO) 5 % (0-10); HEMATOCRIT 41 % (35-52); HEMOGLOBIN 13.9 G/DL (11.5-16.0); LYMPHOCYTES # (AUTO) 2.2 X 10^3 (1.0-4.0); LYMPHOCYTES % (AUTO) 39 % (12-44); MEAN CORPUSCULAR HEMOGLOBIN 31 PG (25-34); MEAN CORPUSCULAR HGB CONC 34 G/DL (32-36); MEAN CORPUSCULAR VOLUME 90 FL (80-99); MEAN PLATELET VOLUME 9.8 FL (7.4-10.4); MONOCYTES # (AUTO) 0.5 X 10^3 (0.0-1.0); MONOCYTES % (AUTO) 9 % (0-12); NEUTROPHILS # (AUTO) 2.5 X 10^3 (1.8-7.8); NEUTROPHILS % (AUTO) 46 % (42-75); PLATELET COUNT 255 10^3/uL (130-400); RED CELL DISTRIBUTION WIDTH 12.9 % (10.0-14.5); WHITE BLOOD COUNT 5.5 10^3/uL (4.3-11.0)
[2020-04-22 14:35] LABS: ALANINE AMINOTRANSFERASE 53 U/L (0-55); ALBUMIN 4.3 GM/DL (3.2-4.5); ALKALINE PHOSPHATASE 80 U/L (40-136); BILIRUBIN,TOTAL 0.3 MG/DL (0.1-1.0); BUN/CREATININE RATIO 22; CALCIUM 9.3 MG/DL (8.5-10.1); CARBON DIOXIDE 25 MMOL/L (21-32); CHLORIDE 107 MMOL/L (98-107); CREATININE SERUM 0.77 MG/DL (0.60-1.30); GFR ESTIMATED > 60; GLUCOSE 107 MG/DL (70-105); POTASSIUM 3.9 MMOL/L (3.6-5.0); SODIUM 142 MMOL/L (135-145); TOTAL PROTEIN 7.1 GM/DL (6.4-8.2)
== END ==
LOC: ONC 14:00
PROVIDERS: ATTEND Internal Medicine Hematology & Oncology
DX: C50.411 Malignant neoplasm of upper-outer quadrant of right female breast (principal)
CPT/HCPCS: 80053; 85025; G0463; 99213

== ENCOUNTER → 2020-04-22 | Outpatient (CLI) | payer OTHER ==
[2020-04-22 14:14] LABS: BASOPHILS # (AUTO) 0.1 10^3/uL (0.0-0.1); BASOPHILS % (AUTO) 1 % (0-10); EOSINOPHILS # (AUTO) 0.3 10^3/uL (0.0-0.3); EOSINOPHILS % (AUTO) 5 % (0-10); HEMATOCRIT 41 % (35-52); HEMOGLOBIN 13.9 G/DL (11.5-16.0); LYMPHOCYTES # (AUTO) 2.2 X 10^3 (1.0-4.0); LYMPHOCYTES % (AUTO) 39 % (12-44); MEAN CORPUSCULAR HEMOGLOBIN 31 PG (25-34); MEAN CORPUSCULAR HGB CONC 34 G/DL (32-36); MEAN CORPUSCULAR VOLUME 90 FL (80-99); MEAN PLATELET VOLUME 9.8 FL (7.4-10.4); MONOCYTES # (AUTO) 0.5 X 10^3 (0.0-1.0); MONOCYTES % (AUTO) 9 % (0-12); NEUTROPHILS # (AUTO) 2.5 X 10^3 (1.8-7.8); NEUTROPHILS % (AUTO) 46 % (42-75); PLATELET COUNT 255 10^3/uL (130-400); RED CELL DISTRIBUTION WIDTH 12.9 % (10.0-14.5); WHITE BLOOD COUNT 5.5 10^3/uL (4.3-11.0)
[2020-04-22 14:37] LABS: BUN/CREATININE RATIO 22; CALCIUM 9.3 MG/DL (8.5-10.1); CARBON DIOXIDE 25 MMOL/L (21-32); CHLORIDE 107 MMOL/L (98-107); CREATININE SERUM 0.77 MG/DL (0.60-1.30); GFR ESTIMATED > 60; GLUCOSE 107 MG/DL (70-105); POTASSIUM 3.9 MMOL/L (3.6-5.0); SODIUM 142 MMOL/L (135-145)
== END ==
LOC: LAB 14:28
PROVIDERS: ATTEND Family Medicine
DX: E83.52 Hypercalcemia (principal); Z98.890 Other specified postprocedural states
CPT/HCPCS: 36415; 80048

== ENCOUNTER → 2020-08-17 | Outpatient (CLI) | payer OTHER ==
[~2020-08-17] MED LIST changes: -CETI10TA21 PO; +CETI10TA49 PO
== END ==
LOC: LABNPT 13:47
PROVIDERS: ATTEND Family Medicine
DX: R43.8 Other disturbances of smell and taste (principal); Z20.828 Contact with and (suspected) exposure to other viral communicable diseases
CPT/HCPCS: 87635